=== PATIENT | female | born 1960 | race American Indian/Alaskan Native ===

== ENCOUNTER 2019-02-03 05:44 | Observation (INO) | payer BC ==
[2019-02-03] MEDS ORDERED: ASPIRIN PO ONE (05:48)
[2019-02-03] MEDS ORDERED: LEVAQUIN 500MG/100ML 0 MG/0 ML BAG IV ONE (05:54)
[2019-02-03 06:08] LABS: Basophils # (Auto) 0.1 K/mm3 (0.0-0.1); Basophils % (Auto) 0.9 % (0.0-1.8); Eosinophils # (Auto) 0.3 K/mm3 (0.0-0.4); Eosinophils % (Auto) 4.1 % (0.0-4.3); Hematocrit 37.8 % (30.3-42.9); Hemoglobin 12.6 gm/dl (10.1-14.3); Lymphocytes # (Auto) 1.7 K/mm3 (1.2-5.4); Lymphocytes % (Auto) 25.5 % (13.4-35.0); Mean Corpuscular HGB Conc 33 % (30-34); Mean Corpuscular Volume 89 fl (79-97); Monocytes # (Auto) 0.4 K/mm3 (0.0-0.8); Monocytes % (Auto) 5.8 % (0.0-7.3); Platelet Count 295 K/mm3 (140-440); Red Blood Count 4.25 M/mm3 (3.65-5.03)
[2019-02-03] MEDS ORDERED: NITRO-BID 2% TP ONE ×2 (06:28→07:39)
[2019-02-03 06:29] LABS: BUN/Creatinine Ratio 20; Blood Urea Nitrogen 20 mg/dL (7-17); Hemolysis Index 2
--- NOTE | 2019-02-03 06:29 | XRay Report ---
CHEST 1 VIEW 5:57 AM INDICATION / CLINICAL INFORMATION: Chest Pain. COMPARISON: None available. FINDINGS: SUPPORT DEVICES: None. HEART / MEDIASTINUM: The heart size is normal with a mild left ventricular configuration. There is mi ld aortic tortuosity without aneurysm. Pulmonary vasculature is normal. LUNGS / PLEURA: No significant pulmonary or pleural abnormality. No pneumothorax. ADDITIONAL FINDINGS: No significant additional findings. IMPRESSION: No acute abnormality. Signer Name: Xavi Monge MD Signed: 02/03/2019 6:24 AM Workstation Name: [id number]
[2019-02-03 07:01] LABS: INR 1.05 (0.87-1.13); Partial Thromboplastin Time 26.5 Sec. (24.2-36.6)
--- NOTE | 2019-02-03 07:06 | Emergency Department Report ---
ED Chest Pain HPI - General Chief Complaint: Chest Pain Stated Complaint: CHEST PRESSURE/WEAKNESS Time Seen by Provider: 02/03/19 06:05 Source: EMS Mode of arrival: Stretcher Limitations: No Limitations - History of Present Illness Initial Comments: This is a 58-year-old female who reports chest pain since 2 PM yesterday. She apparently would like to relate this to sleeping in a multi area which she exercises. She does not report any acute respiratory change or cough however. She states that she has had a hospitalization in July in [facility] for chest pain. She may have had a CT scan at that time. She cannot further describe what sort of workup she had. She denies being on anticoagulants. 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 She gives no prior history of venous thromboembolism. Pain is nonpleuritic and nonradiating. She states that she had some sweating but no acute dyspnea. He does not complain of leg pain or swelling either. She denies being a smoker. She denies diabetes, hypertension and high cholesterol. MD Complaint: chest pain -: Gradual, hour(s) Onset: during rest Pain Location: substernal Pain Radiation: none Severity: moderate Quality: tightness Consistency: constant Improves With: nothing Worsens With: nothing re: diaphoresis (some sweating but not daniella diaphoresis). denies: nausea, vomting Other Symptoms: denies: cough, fever, syncope Treatments Prior to Arrival: none Aspirin use within the Past 7 Days: (0) No - Related Data Allergies Allergy/AdvReac Type Severity Reaction Status Date / Time No Known Allergies Allergy Verified 02/03/19 05:48 Heart Score - HEART Score History: Moderately suspicious EKG: Non-specific Age: 45-65 Risk factors: 1-2 risk factors Troponin: < normal limit HEART Score: 4 - Critical Actions Critical Actions: 4-6 pts:12-16.6% risk of adverse cardiac event. Should be admitted ED Review of Systems ROS: Stated complaint: CHEST PRESSURE/WEAKNESS Other details as noted in HPI Constitutional: weakness. denies: chills, fever Eyes: denies: eye pain, eye discharge, vision change ENT: denies: ear pain, throat pain Respiratory: denies: cough, shortness of breath, wheezing Cardiovascular: chest pain. denies: palpitations Endocrine: no symptoms reported Gastrointestinal: denies: abdominal pain, nausea, diarrhea Genitourinary: denies: urgency, dysuria, discharge Musculoskeletal: denies: back pain, joint swelling, arthralgia Skin: denies: rash, lesions Neurological: denies: headache, weakness, paresthesias Psychiatric: denies: anxiety, depression Hematological/Lymphatic: denies: easy bleeding, easy bruising ED Past Medical Hx - Past Medical History Previous Medical History?: Yes Hx of Cancer: Yes (left kidney) - Surgical History Past Surgical History?: Yes Hx Cholecystectomy: Yes Additional Surgical History: kidney removal - Social History Smoking Status: Never Smoker Substance Use Type: None ED Physical Exam - General Limitations: No Limitations General appearance: alert, in no apparent distress, obese - Head Head exam: Present: atraumatic, normocephalic - Eye Eye exam: Present: normal appearance - ENT ENT exam: Present: mucous membranes moist - Neck Neck exam: Present: normal inspection - Respiratory Respiratory exam: Present: normal lung sounds bilaterally. Absent: respiratory distress - Cardiovascular Cardiovascular Exam: Present: regular rate, normal rhythm. Absent: systolic murmur, diastolic murmur, rubs, gallop - GI/Abdominal GI/Abdominal exam: Present: soft, normal bowel sounds. Absent: distended, tenderness, guarding, rebound - Extremities Exam Extremities exam: Present: normal inspection, normal capillary refill. Absent: pedal edema, joint swelling, calf tenderness - Back Exam Back exam: Present: normal inspection - Neurological Exam Neurological exam: Present: alert, oriented X3, CN II-XII intact. Absent: motor sensory deficit - Psychiatric Psychiatric exam: Present: normal affect, normal mood - Skin Skin exam: Present: warm, dry, intact, normal color. Absent: rash ED Course Vital Signs 02/03/19 02/03/19 02/03/19 05:42 05:46 05:50 Temperature 98 F Pulse Rate 73 Respiratory 8 L Rate Blood Pressure Blood Pressure [Left] O2 Sat by Pulse 99 100 Oximetry 02/03/19 02/03/19 02/03/19 06:01 06:15 07:20 Temperature Pulse Rate 80 75 75 Respiratory 14 21 15 Rate Blood Pressure 161/62 161/62 Blood Pressure 183/78 [Left] O2 Sat by Pulse 98 Oximetry 02/03/19 07:46 Temperature Pulse Rate 66 Respiratory Rate Blood Pressure 186/94 Blood Pressure [Left] O2 Sat by Pulse Oximetry - Reevaluation(s) Reevaluation #1: The patient has a very slightly elevated d-dimer. She will be admitted for further care and evaluation. 02/03/19 07:09 Reevaluation #2: I discussed with hospitalists the patient's slightly elevated d-dimer. They stated they will not be able to get a stress test if we order a radionuclide study now. The patient does not have access for a CT angiogram. Her d-dimer is very minimally elevated. Thus I am not going to order a lung scan at this time. Patient is admitted to Dr. Brownlee for further evaluation. 02/03/19 07:50 ED Medical Decision Making - Lab Data Result diagrams: 02/03/19 05:52 02/03/19 05:52 Laboratory Results - last 24 hr 02/03/19 02/03/19 02/03/19 05:52 05:52 06:39 WBC 6.9 RBC 4.25 Hgb 12.6 Hct 37.8 MCV 89 MCH 30 MCHC 33 RDW 14.0 Plt Count 295 Lymph % (Auto) 25.5 [place] % (Auto) 5.8 Eos % (Auto) 4.1 Baso % (Auto) 0.9 Lymph # 1.7 [place] # 0.4 Eos # 0.3 Baso # 0.1 Seg Neutrophils % 63.7 Seg Neutrophils # 4.4 PT 13.4 INR 1.05 APTT 26.5 D-Dimer 260.36 H Sodium 143 Potassium 4.3 Chloride 106.5 Carbon Dioxide 25 Anion Gap 16 BUN 20 H Creatinine 1.0 Estimated GFR > 60 BUN/Creatinine Ratio 20 Glucose 108 H Calcium 9.0 Troponin T < 0.010 - EKG Data -: EKG Interpreted by Me EKG shows normal: sinus rhythm Rate: normal - EKG Data Interpretation: nonspecific ST-T wave john (very slight inferolateral ST depression nonspecific) - Radiology Data Radiology results: image reviewed (no acute process) Critical care attestation.: If time is entered above; I have spent that time in minutes in the direct care o f this critically ill patient, excluding procedure time. ED Disposition Clinical Impression: Uncontrolled hypertension Chest pain Qualifiers: Chest pain type: unspecified Qualified Code(s): R07.9 - Chest pain, unspecified Disposition: - OP ADMIT IP TO THIS HOSP Is pt being admited?: Yes Does the pt Need Aspirin: Yes Condition: Stable Instructions: Chest Pain (ED), Hypertension (ED) Referrals: PRIMARY CARE, [Primary Care Provider] - 3-5 Days Time of Disposition: 07:52
[2019-02-03 07:18] LABS: Alanine Aminotransferase 10 units/L (7-56); Albumin 3.6 g/dL (3.9-5)
[2019-02-03 07:20] LABS: Bilirubin,Direct < 0.2 mg/dL (0-0.2)
--- NOTE | 2019-02-03 12:17 | History and Physical Report ---
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 The patient reports that she did does not have any chronic medical condition on July it did have a stress test done which she states was a nuclear stress test does not remember the result. She reports that in the last 2 days she started noticing some nonproductive cough which followed by a pressure sensation in her chest and nonradiating nonpleuritic about a 4/10 in intensity. She began to stress some shortness of breath and took some uolm-odp-wogytwe allergy medications for them that this may be allergy. She shows me a picture of a discoloration on a copy of flow which she claims is mold and Dr. osman at the hotel where she may have this pain and reports that the staff at the facility confirmed it. She otherwise feels that this is not chest pain and reports some relief at this time. He denies any diaphoresis nausea vomiting or diarrhea. Again she denies any radiation of the pain. There is no exertional component to the pain. Past History Past Medical History: cancer (renal cancer left kidney), other (obesity) Past Surgical History: Other (left nephrectomy secondary to malignancy) Social history: no significant social history Family history: no significant family history Medications and Allergies Allergies Allergy/AdvReac Type Severity Reaction Status Date / Time No Known Allergies Allergy Verified 02/03/19 05:48 Home Medications Medication Instructions Recorded Confirmed Last Taken Type Desloratadine/Pseudoephedrine 1 each PO PRN 02/03/19 02/03/19 Unknown History [Clarinex-D 12 Hour Tablet] Mv-Min/Iron/Folic/Calcium/Vitk 1 each PO DAILY 02/03/19 02/03/19 Unknown History [Women's Multivitamin Tablet] Active Meds: Active Medications Miscellaneous Medication (Mv-Min/Iron/Folic/Calcium/Vitk [Women's Multivitamin Tablet]) 1 each PO DAILY MERA Review of Systems All systems: negative Constitutional: no fever, no chills, no sweats, no night sweats, no weakness, no malaise Cardiovascular: chest pain, shortness of breath, no orthopnea, no palpitations, no rapid/irregular heart beat, no edema, no syncope, no lightheadedness Respiratory: cough, shortness of breath, dyspnea on exertion, no cough with sputum, no excessive sputum, no hemoptysis Exam - Physical Exam Narrative exam: VITAL SIGNS: Reviewed. GENERAL: The patient appears normally developed, morbidly obese Vital signs as documented. HEAD: No signs of head trauma. EYES: Pupils are equal. Extraocular motions intact. EARS: Hearing grossly intact. MOUTH: Oropharynx is normal. NECK: No adenopathy, no JVD. CHEST: Chest with diminished breath sounds bilaterally. No wheezes, rales, or rhonchi. CARDIAC: Regular rate and rhythm. S1 and S2, without murmurs, gallops, or rubs. VASCULAR: No Edema. Peripheral pulses normal and equal in all extremities. ABDOMEN: Soft, non tender and non distended. No rebound or guarding, and no masses palpated. Bowel Sounds normal. MUSCULOSKELETAL: Good range of motion of all major joints. Extremities without clubbing, cyanosis or edema. NEUROLOGIC EXAM: Alert and oriented x 3 No focal sensory or strength deficits. Speech normal. Follows commands. PSYCHIATRIC: Mood normal. SKIN: detail exam as documented in skin assessment - Constitutional Vitals: Temp Pulse Resp BP Pulse Ox 97.5 F L 62 16 148/72 99 02/03/19 11:58 02/03/19 11:58 02/03/19 11:58 02/03/19 11:58 02/03/19 11:58 General appearance: Present: obese Results - Labs CBC & Chem 7: 02/03/19 05:52 02/03/19 05:52 Labs: Laboratory Last Values WBC 6.9 K/mm3 (4.5-11.0) 02/03/19 05:52 RBC 4.25 M/mm3 (3.65-5.03) 02/03/19 05:52 Hgb 12.6 gm/dl (10.1-14.3) 02/03/19 05:52 Hct 37.8 % (30.3-42.9) 02/03/19 05:52 MCV 89 fl (79-97) 02/03/19 05:52 MCH 30 pg (28-32) 02/03/19 05:52 MCHC 33 % (30-34) 02/03/19 05:52 RDW 14.0 % (13.2-15.2) 02/03/19 05:52 Plt Count 295 K/mm3 (140-440) 02/03/19 05:52 Lymph % (Auto) 25.5 % (13.4-35.0) 02/03/19 05:52 [place] % (Auto) 5.8 % (0.0-7.3) 02/03/19 05:52 Eos % (Auto) 4.1 % (0.0-4.3) 02/03/19 05:52 Baso % (Auto) 0.9 % (0.0-1.8) 02/03/19 05:52 Lymph # 1.7 K/mm3 (1.2-5.4) 02/03/19 05:52 [place] # 0.4 K/mm3 (0.0-0.8) 02/03/19 05:52 Eos # 0.3 K/mm3 (0.0-0.4) 02/03/19 05:52 Baso # 0.1 K/mm3 (0.0-0.1) 02/03/19 05:52 Seg Neutrophils % 63.7 % (40.0-70.0) 02/03/19 05:52 Seg Neutrophils # 4.4 K/mm3 (1.8-7.7) 02/03/19 05:52 PT 13.4 Sec. (12.2-14.9) 02/03/19 06:39 INR 1.05 (0.87-1.13) 02/03/19 06:39 APTT 26.5 Sec. (24.2-36.6) 02/03/19 06:39 260.36 ng/mlDDU (0-234) H 02/03/19 06:39 Sodium 143 mmol/L (137-145) 02/03/19 05:52 Potassium 4.3 mmol/L (3.6-5.0) 02/03/19 05:52 Chloride 106.5 mmol/L (98-107) 02/03/19 05:52 Carbon Dioxide 25 mmol/L (22-30) 02/03/19 05:52 16 mmol/L 02/03/19 05:52 BUN 20 mg/dL (7-17) H 02/03/19 05:52 1.0 mg/dL (0.7-1.2) 02/03/19 05:52 Estimated GFR > 60 ml/min 02/03/19 05:52 20 % 02/03/19 05:52 Glucose 108 mg/dL (65-100) H 02/03/19 05:52 Calcium 9.0 mg/dL (8.4-10.2) 02/03/19 05:52 Magnesium 1.90 mg/dL (1.7-2.3) 02/03/19 05:52 0.30 mg/dL (0.1-1.2) 02/03/19 05:52 < 0.2 mg/dL (0-0.2) 02/03/19 05:52 0.1 mg/dL 02/03/19 05:52 AST 17 units/L (5-40) 02/03/19 05:52 ALT 10 units/L (7-56) 02/03/19 05:52 88 units/L (35-129) 02/03/19 05:52 < 0.010 ng/mL (0.00-0.029) 02/03/19 11:49 NT-Pro-B Natriuret Pep 38.11 pg/mL (0-900) 02/03/19 05:52 7.8 g/dL (6.3-8.2) 02/03/19 05:52 3.6 g/dL (3.9-5) L 02/03/19 05:52 0.9 % 02/03/19 05:52 Assessment and Plan Assessment and plan: 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 The patient reports that she did does not have any chronic medical condition on July it did have a stress test done which she states was a nuclear stress test does not remember the result. She reports that in the last 2 days she started noticing some nonproductive cough which followed by a pressure sensation in her chest and nonradiating nonpleuritic about a 4/10 in intensity. She began to stress some shortness of breath and took some iawl-haa-bjlatdl allergy medications for them that this may be allergy. She shows me a picture of a discoloration on a copy of flow which she claims is mold and Dr. osman at the hotel where she may have this pain and reports that the staff at the facility confirmed it. She otherwise feels that this is not chest pain and reports some relief at this time. He denies any diaphoresis nausea vomiting or diarrhea. Again she denies any radiation of the pain. There is no exertional component to the pain. Atypical chest pain Shortness of breath Morbid Obesity Elevated D.dimer Plan Admit to Telemetry Nebs prn Obtain Records from outside facility Stress test protocol Empiric ABX Pulmonary consult Weightloss counselling DVT/GI prophy Advance Directives: Yes Plan of care discussed with patient/family: Yes
--- NOTE | 2019-02-03 12:18 | History and Physical Report ---
History of Present Illness Date of admission: 02/03/19 07:52 Medications and Allergies Allergies Allergy/AdvReac Type Severity Reaction Status Date / Time No Known Allergies Allergy Verified 02/03/19 05:48 Home Medications Medication Instructions Recorded Confirmed Last Taken Type Desloratadine/Pseudoephedrine 1 each PO PRN 02/03/19 02/03/19 Unknown History [Clarinex-D 12 Hour Tablet] Mv-Min/Iron/Folic/Calcium/Vitk 1 each PO DAILY 02/03/19 02/03/19 Unknown History [Women's Multivitamin Tablet] Active Meds: Active Medications Miscellaneous Medication (Mv-Min/Iron/Folic/Calcium/Vitk [Women's Multivitamin Tablet]) 1 each PO DAILY MERA Exam - Constitutional Vitals: Temp Pulse Resp BP Pulse Ox 97.5 F L 62 16 148/72 99 02/03/19 11:58 02/03/19 11:58 02/03/19 11:58 02/03/19 11:58 02/03/19 11:58 Results - Labs CBC & Chem 7: 02/03/19 05:52 02/03/19 05:52 Labs: Laboratory Last Values WBC 6.9 K/mm3 (4.5-11.0) 02/03/19 05:52 RBC 4.25 M/mm3 (3.65-5.03) 02/03/19 05:52 Hgb 12.6 gm/dl (10.1-14.3) 02/03/19 05:52 Hct 37.8 % (30.3-42.9) 02/03/19 05:52 MCV 89 fl (79-97) 02/03/19 05:52 MCH 30 pg (28-32) 02/03/19 05:52 MCHC 33 % (30-34) 02/03/19 05:52 RDW 14.0 % (13.2-15.2) 02/03/19 05:52 Plt Count 295 K/mm3 (140-440) 02/03/19 05:52 Lymph % (Auto) 25.5 % (13.4-35.0) 02/03/19 05:52 Iron % (Auto) 5.8 % (0.0-7.3) 02/03/19 05:52 Eos % (Auto) 4.1 % (0.0-4.3) 02/03/19 05:52 Baso % (Auto) 0.9 % (0.0-1.8) 02/03/19 05:52 Lymph # 1.7 K/mm3 (1.2-5.4) 02/03/19 05:52 Iron # 0.4 K/mm3 (0.0-0.8) 02/03/19 05:52 Eos # 0.3 K/mm3 (0.0-0.4) 02/03/19 05:52 Baso # 0.1 K/mm3 (0.0-0.1) 02/03/19 05:52 Seg Neutrophils % 63.7 % (40.0-70.0) 02/03/19 05:52 Seg Neutrophils # 4.4 K/mm3 (1.8-7.7) 02/03/19 05:52 PT 13.4 Sec. (12.2-14.9) 02/03/19 06:39 INR 1.05 (0.87-1.13) 02/03/19 06:39 APTT 26.5 Sec. (24.2-36.6) 02/03/19 06:39 260.36 ng/mlDDU (0-234) H 02/03/19 06:39 Sodium 143 mmol/L (137-145) 02/03/19 05:52 Potassium 4.3 mmol/L (3.6-5.0) 02/03/19 05:52 Chloride 106.5 mmol/L (98-107) 02/03/19 05:52 Carbon Dioxide 25 mmol/L (22-30) 02/03/19 05:52 16 mmol/L 02/03/19 05:52 BUN 20 mg/dL (7-17) H 02/03/19 05:52 1.0 mg/dL (0.7-1.2) 02/03/19 05:52 Estimated GFR > 60 ml/min 02/03/19 05:52 20 % 02/03/19 05:52 Glucose 108 mg/dL (65-100) H 02/03/19 05:52 Calcium 9.0 mg/dL (8.4-10.2) 02/03/19 05:52 Magnesium 1.90 mg/dL (1.7-2.3) 02/03/19 05:52 0.30 mg/dL (0.1-1.2) 02/03/19 05:52 < 0.2 mg/dL (0-0.2) 02/03/19 05:52 0.1 mg/dL 02/03/19 05:52 AST 17 units/L (5-40) 02/03/19 05:52 ALT 10 units/L (7-56) 02/03/19 05:52 88 units/L (35-129) 02/03/19 05:52 < 0.010 ng/mL (0.00-0.029) 02/03/19 11:49 NT-Pro-B Natriuret Pep 38.11 pg/mL (0-900) 02/03/19 05:52 7.8 g/dL (6.3-8.2) 02/03/19 05:52 3.6 g/dL (3.9-5) L 02/03/19 05:52 0.9 % 02/03/19 05:52
[2019-02-03] MEDS ORDERED: PROVENTIL IH PRN (12:19)
[2019-02-03] MEDS ORDERED: MORPHINE IV PRN (12:19)
[2019-02-03] MEDS ORDERED: NARCAN 0.4 MG/1 ML IV PRN (12:19)
[2019-02-03] MEDS ORDERED: SODIUM CHLORIDE FLUSH SYRINGE 10 ML IV PRN (12:19)
[2019-02-03] MEDS ORDERED: ZOFRAN IV PRN (12:19)
[2019-02-03] MEDS ORDERED: APRESOLINE IV PRN (16:46)
--- NOTE | 2019-02-03 21:32 | Cat Scan Report ---
NONENHANCED CT SCAN OF THE BRAIN: INDICATION: light headedness. TECHNIQUE: Routine CT head without contrast. Sagittal and coronal reformatted images were obtained. A ll CT scans at this location are performed using CT dose reduction for ALARA by means of automated ex posure control. COMPARISON: None. FINDINGS: BRAIN / INTRACRANIAL CONTENTS: No acute hemorrhage, mass effect, midline shift, hydrocephalus, or acu te, large territorial infarct. No chronic infarct or focal atrophy. Normal brain volume and ventricul ar/sulcal size for age. No significant white matter abnormality CRANIOCERVICAL JUNCTION: No significant abnormality. ORBITS: No significant abnormality of visualized orbits. SINUSES / MASTOIDS: No significant abnormality of the visualized paranasal sinuses or mastoid air soy ls. ADDITIONAL FINDINGS: This is seen. Small scalp lesion is seen in the frontal area midline. Probably s ebaceous cyst. IMPRESSION: I do not see an acute parenchymal lesion in the brain. Signer Name: Aby Small MD Signed: 02/03/2019 9:28 PM Workstation Name: [id number]
[2019-02-03] MEDS: PEPCID IV SCH (21:35)
--- NOTE | 2019-02-03 22:51 | Cat Scan Report ---
CT angio chest INDICATION / CLINICAL INFORMATION: shortness of breath. TECHNIQUE: Axial CT images were obtained after injection of IV contrast using CTA protocol. 3 plane MIP / 3D rec onstructions were produced. All CT scans at this location are performed using CT dose reduction for A CHANDAN by means of automated exposure control. COMPARISON: None available. FINDINGS: Lungs demonstrate no suspicious mass or infiltrate. There is mild peripheral interstitial disease. A noncalcified right middle lobe nodule measures 6 mm. Negative for aneurysm, dissection or pulmonary embolus. There is no mediastinal mass or adenopathy. Imaging of the upper abdomen demonstrates previous left nephrectomy and cholecystectomy. Negative for biliary dilatation. IMPRESSION: 1. Negative for pulmonary embolus or pneumonia. 2. Incidental pulmonary nodule measuring 6 mm. INCIDENTAL PULMONARY NODULE RECOMMENDATIONS Solid Nodule size 6-8 mm -- Single - Low Risk Patient: CT at 6-12 months, then consider CT at 18-24 months - High Risk Patient: CT at 6-12 months, then CT at 18-24 months Note These recommendations do not apply to lung cancer screening, patients with immunosuppression, o r patients with known primary cancer. Note Newly detected indeterminate nodule in persons 35 years of age or older. Persons under the age of 35 should not receive follow-up unless there is a known primary cancer. Low Risk Patient -- minimal or absent history of smoking and of other known risk factors. High Risk Patient -- history of smoking or of other known risk factors. Nodule dimensions are average of long and short axes, rounded to the nearest millimeter. Based on 2017 Fleischner Society Guidelines found in Radiology 2017 284:228-243. [email or web address] [email or web address] Signer Name: Bernardo Bowens MD Signed: 02/03/2019 10:46 PM Workstation Name: [id number]
[2019-02-03] MEDS ORDERED: NACL 0.9% 1000 ML 1,000 ML IV ONE (23:00)
[2019-02-03] MEDS: SODIUM CHLORIDE FLUSH SYRINGE 10 ML IV SCH (23:12)
[2019-02-04] MEDS: FLONASE NS SCH ×2 (02:01→10:38)
[2019-02-04 05:47] LABS: Basophils # (Auto) 0.1 K/mm3 (0.0-0.1); Basophils % (Auto) 1.2 % (0.0-1.8); Eosinophils # (Auto) 0.3 K/mm3 (0.0-0.4); Eosinophils % (Auto) 4.8 % (0.0-4.3); Hematocrit 37.6 % (30.3-42.9); Hemoglobin 12.5 gm/dl (10.1-14.3); Lymphocytes # (Auto) 1.6 K/mm3 (1.2-5.4); Mean Corpuscular HGB Conc 33 % (30-34); Mean Corpuscular Volume 89 fl (79-97); Monocytes # (Auto) 0.4 K/mm3 (0.0-0.8); Platelet Count 318 K/mm3 (140-440); Red Blood Count 4.25 M/mm3 (3.65-5.03); Red Cell Distribution Width 14.1 % (13.2-15.2)
[2019-02-04 06:11] LABS: BUN/Creatinine Ratio 13; Blood Urea Nitrogen 12 mg/dL (7-17); Calcium 8.9 mg/dL (8.4-10.2); Hemolysis Index 5
[2019-02-04] MEDS ORDERED: LEXISCAN IV ONE ×2 (08:05→08:09)
[2019-02-04] MEDS ORDERED: MV MIN PO SCH (10:00)
[2019-02-04] MEDS ORDERED: CALCIUM PO SCH (10:00)
[2019-02-04] MEDS ORDERED: VITK PO SCH (10:00)
[2019-02-04] MEDS ORDERED: HCTZ PO SCH (10:00)
[2019-02-04] MEDS ORDERED: IRON PO SCH (10:00)
[2019-02-04] MEDS ORDERED: FOLIC PO SCH (10:00)
[2019-02-04] MEDS: PEPCID IV SCH ×2 (10:37→21:48)
[2019-02-04] MEDS: SODIUM CHLORIDE FLUSH SYRINGE 10 ML IV SCH ×2 (10:38→21:50)
[2019-02-04] MEDS: THERAGRAN-M Tab PO SCH (10:38)
--- NOTE | 2019-02-04 11:00 | Discharge Summary ---
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 The patient reports that she did does not have any chronic medical condition on July it did have a stress test done which she states was a nuclear stress test does not remember the result. She reports that in the last 2 days she started noticing some nonproductive cough which followed by a pressure sensation in her chest and nonradiating nonpleuritic about a 4/10 in intensity. She began to stress some shortness of breath and took some fceo-gmq-htbthjg allergy medications for them that this may be allergy. She shows me a picture of a discoloration on a copy of flow which she claims is mold and Dr. osman at the hotel where she may have this pain and reports that the staff at the facility confirmed it. She otherwise feels that this is not chest pain and reports some relief at this time. He denies any diaphoresis nausea vomiting or diarrhea. Again she denies any radiation of the pain. There is no exertional component to the pain. Atypical chest pain Shortness of breath Morbid Obesity Elevated D.dimer PULMONARY NODULE Disposition: TO HOME OR SELFCARE Exam - Constitutional Vitals: Temp Pulse Resp BP Pulse Ox 98.0 F 67 18 172/70 97 02/04/19 08:09 02/04/19 08:09 02/04/19 08:09 02/04/19 09:48 02/04/19 08:09 Plan Activity: advance as tolerated, fall precautions Diet: low fat Special Instructions: record daily BP diary Follow up with: YARELY GE MD [Staff Physician] - 7 Days PRIMARY CARE, [Primary Care Provider] - 3-5 Days Prescriptions: Fluticasone [Flonase] 50 mcg NS QDAY #1 bottle Lisinopril [Zestril TAB] 20 mg PO QDAY #30 tablet
--- NOTE | 2019-02-04 13:40 | Progress Note ---
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 The patient reports that she did does not have any chronic medical condition on July it did have a stress test done which she states was a nuclear stress test does not remember the result. She reports that in the last 2 days she started noticing some nonproductive cough which followed by a pressure sensation in her chest and nonradiating nonpleuritic about a 4/10 in intensity. She began to stress some shortness of breath and took some [id number] allergy medications for them that this may be all ergy. She shows me a picture of a discoloration on a copy of flow which she claims is mold and Dr. osman at the hotel where she may have this pain and reports that the staff at the facility confirmed it. She otherwise feels that this is not chest pain and reports some relief at this time. He denies any diaphoresis nausea vomiting or diarrhea. Again she denies any radiation of the pain. There is no exertional component to the pain. Atypical chest pain Shortness of breath Morbid Obesity Elevated D.dimer Uncontrolled hypertension Plan Stress test was negative, head CT is negative CTA is also negative for pulmonary embolism there is a pulmonary nodule which is noted recommended a repeat CT scan in 6 months the patient verbalized understanding. Recommended an outpatient pulmonary follow-up for PFT. Patient verbalized understanding. 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 Agent verbalized concern for possible mold this has been discussed with her and need to follow-up with pulmonary. Talishas prn Ultimately we will unable to obtain results from previous facility which is why the patient underwent a stress test at this time since she is aware of her previous stress results. E Patient will be started on blood pressure medication considering her elevated blood pressure despite her anxiety. She has been instructed to have outpatient ambulatory blood pressure and also keep a blood pressure diary. I've requested that she obtains a repeat BMP outpatient in the week following the initiation of antibiotics Obtain a Doppler of lower extremity for completion. Gentle hydration dvt GI prophylaxis anticipate discharge in a.m. extensive conversation with the patient including medicine staff and case management for present in the room. History Interval history: Patient seen and examined this morning very emotional reports that she is having headache which is resolving. She rates it 3/10 in intensity but states that she is feels that this is secondary to contrast she has had this before when she had a contrast test in the past she is requesting fluids. Spent extensive time about one half hours discussing with the patient and family about her kidney function considering that she is a patient that has had a history of nephrectomy. His understanding Review of her vital signs shows that when she is emotional and anxious her blood pressure does elevate was also discussed with her. Hospitalist Physical - Physical exam Narrative exam: VITAL SIGNS: Reviewed. GENERAL: The patient appears normally developed, morbidly obese Vital signs as documented. HEAD: No signs of head trauma. EYES: Pupils are equal. Extraocular motions intact. EARS: Hearing grossly intact. MOUTH: Oropharynx is normal. NECK: No adenopathy, no JVD. CHEST: Chest with diminished breath sounds bilaterally. No wheezes, rales, or rhonchi. CARDIAC: Regular rate and rhythm. S1 and S2, without murmurs, gallops, or rubs. VASCULAR: No Edema. Peripheral pulses normal and equal in all extremities. ABDOMEN: Soft, non tender and non distended. No rebound or guarding, and no masses palpated. Bowel Sounds normal. MUSCULOSKELETAL: Good range of motion of all major joints. Extremities without clubbing, cyanosis or edema. NEUROLOGIC EXAM: Alert and oriented x 3 No focal sensory or strength deficits. Speech normal. Follows commands. PSYCHIATRIC: Mood normal. SKIN: detail exam as documented in skin assessment - Constitutional Vitals: Temp Pulse Resp BP Pulse Ox 98.0 F 67 18 172/70 97 02/04/19 08:09 02/04/19 08:09 02/04/19 08:09 02/04/19 09:48 02/04/19 08:09 General appearance: Present: obese Results - Labs CBC & Chem 7: 02/04/19 05:15 02/04/19 05:15 Labs: Laboratory Last Values WBC 6.9 K/mm3 (4.5-11.0) 02/04/19 05:15 RBC 4.25 M/mm3 (3.65-5.03) 02/04/19 05:15 Hgb 12.5 gm/dl (10.1-14.3) 02/04/19 05:15 Hct 37.6 % (30.3-42.9) 02/04/19 05:15 MCV 89 fl (79-97) 02/04/19 05:15 MCH 29 pg (28-32) 02/04/19 05:15 MCHC 33 % (30-34) 02/04/19 05:15 RDW 14.1 % (13.2-15.2) 02/04/19 05:15 Plt Count 318 K/mm3 (140-440) 02/04/19 05:15 Lymph % (Auto) 23.0 % (13.4-35.0) 02/04/19 05:15 [facility] % (Auto) 6.0 % (0.0-7.3) 02/04/19 05:15 Eos % (Auto) 4.8 % (0.0-4.3) H 02/04/19 05:15 Baso % (Auto) 1.2 % (0.0-1.8) 02/04/19 05:15 Lymph # 1.6 K/mm3 (1.2-5.4) 02/04/19 05:15 [facility] # 0.4 K/mm3 (0.0-0.8) 02/04/19 05:15 Eos # 0.3 K/mm3 (0.0-0.4) 02/04/19 05:15 Baso # 0.1 K/mm3 (0.0-0.1) 02/04/19 05:15 Seg Neutrophils % 65.0 % (40.0-70.0) 02/04/19 05:15 Seg Neutrophils # 4.5 K/mm3 (1.8-7.7) 02/04/19 05:15 PT 13.4 Sec. (12.2-14.9) 02/03/19 06:39 INR 1.05 (0.87-1.13) 02/03/19 06:39 APTT 26.5 Sec. (24.2-36.6) 02/03/19 06:39 260.36 ng/mlDDU (0-234) H 02/03/19 06:39 Sodium 140 mmol/L (137-145) 02/04/19 05:15 Potassium 4.2 mmol/L (3.6-5.0) 02/04/19 05:15 Chloride 105.0 mmol/L (98-107) 02/04/19 05:15 Carbon Dioxide 25 mmol/L (22-30) 02/04/19 05:15 14 mmol/L 02/04/19 05:15 BUN 12 mg/dL (7-17) 02/04/19 05:15 0.9 mg/dL (0.7-1.2) 02/04/19 05:15 Estimated GFR > 60 ml/min 02/04/19 05:15 13 % 02/04/19 05:15 Glucose 106 mg/dL (65-100) H 02/04/19 05:15 Calcium 8.9 mg/dL (8.4-10.2) 02/04/19 05:15 Magnesium 1.90 mg/dL (1.7-2.3) 02/03/19 05:52 0.30 mg/dL (0.1-1.2) 02/03/19 05:52 < 0.2 mg/dL (0-0.2) 02/03/19 05:52 0.1 mg/dL 02/03/19 05:52 AST 17 units/L (5-40) 02/03/19 05:52 ALT 10 units/L (7-56) 02/03/19 05:52 88 units/L (35-129) 02/03/19 05:52 < 0.010 ng/mL (0.00-0.029) 02/03/19 11:49 NT-Pro-B Natriuret Pep 38.11 pg/mL (0-900) 02/03/19 05:52 7.8 g/dL (6.3-8.2) 02/03/19 05:52 3.6 g/dL (3.9-5) L 02/03/19 05:52 0.9 % 02/03/19 05:52 Active Medications - Current Medications Current Medications: Generic Name Dose Route Start Last Admin Trade Name Freq PRN Reason Stop Dose Admin Acetaminophen 650 mg 02/03/19 12:19 Tylenol PO Q4H PRN Pain MILD(1-3)/Fever >100.5/BRONSON Albuterol 2.5 mg 02/03/19 12:19 Proventil IH Q4HRT PRN Shortness Of Breath Cyclobenzaprine HCl 5 mg 02/03/19 12:21 Flexeril PO Q8H PRN Muscle Spasm Famotidine 10 mg 02/03/19 22:00 02/04/19 10:37 Pepcid IV 10 mg BID MERA Administration Fluticasone Propionate 50 mcg 02/04/19 02:00 02/04/19 10:38 Flonase NS 50 mcg QDAY MERA Administration Hydralazine HCl 10 mg 02/03/19 16:46 02/03/19 21:36 Apresoline IV 10 mg Q6H PRN Administration Hypertension Hydrochlorothiazide 12.5 mg 02/04/19 10:00 02/04/19 10:38 Hctz PO 12.5 mg QDAY MERA Administration Morphine Sulfate 2 mg 02/03/19 12:19 Morphine IV Q4H PRN Pain, Moderate (4-6) Multivitamins/Minerals 1 each 02/04/19 10:00 02/04/19 10:38 Theragran-M Tab PO 1 each QDAY MERA Administration Naloxone HCl 0.1 mg 02/03/19 12:19 Narcan 0.4 Mg/1 Ml IV Q2MIN PRN Res Rate </= 8 or 02 SAT < 92% Ondansetron HCl 4 mg 02/03/19 12:19 Zofran IV Q8H PRN Nausea And Vomiting Sodium Chloride 10 ml 02/03/19 22:00 02/04/19 10:38 Sodium Chloride Flush Syringe 10 Ml IV 10 ml BID MERA Administration Sodium Chloride 10 ml 02/03/19 12:19 Sodium Chloride Flush Syringe 10 Ml IV PRN PRN LINE FLUSH
[2019-02-04] MEDS ORDERED: NACL 0.9% 1000 ML 1,000 ML IV SCH (14:00)
--- NOTE | 2019-02-04 14:00 | Treadmill Report ---
REFERRING PHYSICIAN: Navraro Brownlee M.D. REVIEWED AND DICTATED BY: Stephanie Art M.D. DESCRIPTION OF PROCEDURE: The patient received 10 mCi of technetium 99m Myoview intravenously under resting conditions. Resting myocardial perfusion scan was done. Subsequently, the patient underwent Lexiscan stress test as per the protocol. During Lexiscan stress, the patient received 28 mCi of technetium 99m Myoview intravenously. After 30-60 minutes, post stress images were done. Computerized reconstruction images was performed for analysis. The post-stress images did not reveal any perfusion abnormality. Gated study did not reveal any wall motion abnormality. The left ventricular ejection fraction was normal and was calculated to be 64%. The resting images were also normal. CONCLUSION: 1. No perfusion abnormality of the left ventricular myocardium was demonstrated in the resting as well as stress images obtained after the patient underwent Lexiscan stress test. 2. No wall motion abnormality. 3. Normal left ventricular systolic function with left ventricular ejection fraction of 64%. [facility]# [id number] [facility]
[2019-02-04] MEDS: TYLENOL PO PRN ×2 (14:02→21:46)
[2019-02-04] MEDS: ZESTRIL PO SCH (14:09)
[2019-02-04] MEDS: FLEXERIL PO PRN ×2 (14:10→21:47)
[2019-02-04] MEDS: DUONEB *Not for PRN Use IH SCH ×2 (15:59→20:46)
--- NOTE | 2019-02-04 16:21 | Consultation ---
History of Present Illness Consult date: 02/04/19 Requesting physician: SANTINO CAVANAUGH Reason for consult: dyspnea History of present illness: Pt. admitted with "chest heaviness" and SOB that began while she was staying at a motel that had visible mold (per patient report). She denies hx of asthma. Denies fevers, chills, wheezing, hemoptysis, cough. Minimal prior smoking hx. Feeling much better now. Currently on RA. Active Medications Acetaminophen (Tylenol) 650 mg PO Q4H PRN PRN Reason: Pain MILD(1-3)/Fever >100.5/BRONSON Last Admin: 02/04/19 14:02 Dose: 650 mg Documented by: Albuterol (Proventil) 2.5 mg IH Q4HRT PRN PRN Reason: Shortness Of Breath Albuterol/Ipratropium (Duoneb *Not For Prn Use*) 1 ampul IH Q6HRT [facility] Last Admin: 02/04/19 15:59 Dose: 1 ampul Documented by: Cyclobenzaprine HCl (Flexeril) 5 mg PO Q8H PRN PRN Reason: Muscle Spasm Last Admin: 02/04/19 14:10 Dose: 5 mg Documented by: Famotidine (Pepcid) 10 mg IV BID [facility] Last Admin: 02/04/19 10:37 Dose: 10 mg Documented by: Fluticasone Propionate (Flonase) 50 mcg NS QDAY [facility] Last Admin: 02/04/19 10:38 Dose: 50 mcg Documented by: Hydralazine HCl (Apresoline) 10 mg IV Q6H PRN PRN Reason: Hypertension Last Admin: 02/03/19 21:36 Dose: 10 mg Documented by: Sodium Chloride (Nacl 0.9% 1000 Ml) 1,000 mls @ 50 mls/hr IV DIRECT [facility] Last Admin: 02/04/19 14:09 Dose: 50 mls/hr Documented by: Lisinopril (Zestril) 20 mg PO QDAY [facility] Last Admin: 02/04/19 14:09 Dose: 20 mg Documented by: Morphine Sulfate (Morphine) 2 mg IV Q4H PRN PRN Reason: Pain, Moderate (4-6) Multivitamins/Minerals (Theragran-M Tab) 1 each PO QDAY [facility] Last Admin: 02/04/19 10:38 Dose: 1 each Documented by: Naloxone HCl (Narcan 0.4 Mg/1 Ml) 0.1 mg IV Q2MIN PRN PRN Reason: Res Rate </= 8 or 02 SAT < 92% Ondansetron HCl (Zofran) 4 mg IV Q8H PRN PRN Reason: Nausea And Vomiting Sodium Chloride (Sodium Chloride Flush Syringe 10 Ml) 10 ml IV BID [facility] Last Admin: 02/04/19 10:38 Dose: 10 ml Documented by: Sodium Chloride (Sodium Chloride Flush Syringe 10 Ml) 10 ml IV PRN PRN PRN Reason: LINE FLUSH Past History Past Medical History: cancer (renal cancer left kidney), other (obesity) Past Surgical History: Other (left nephrectomy secondary to malignancy) Social history: no significant social history, full code. denies: smoking, alcohol abuse, prescription drug abuse, IV drug use Family history: no significant family history Medications and Allergies Allergies Allergy/AdvReac Type Severity Reaction Status Date / Time No Known Allergies Allergy Verified 02/03/19 05:48 Home Medications Medication Instructions Recorded Confirmed Last Taken Type Mv-Min/Iron/Folic/Calcium/Vitk 1 each PO DAILY 02/03/19 02/03/19 Unknown History [Women's Multivitamin Tablet] Fluticasone [Flonase] 50 mcg NS QDAY #1 bottle 02/04/19 Unknown Rx Lisinopril [Zestril TAB] 20 mg PO QDAY #30 tablet 02/04/19 Unknown Rx Active Meds: Active Medications Acetaminophen (Tylenol) 650 mg PO Q4H PRN PRN Reason: Pain MILD(1-3)/Fever >100.5/BRONSON Last Admin: 02/04/19 14:02 Dose: 650 mg Documented by: Albuterol (Proventil) 2.5 mg IH Q4HRT PRN PRN Reason: Shortness Of Breath Albuterol/Ipratropium (Duoneb *Not For Prn Use*) 1 ampul IH Q6HRT [facility] Last Admin: 02/04/19 15:59 Dose: 1 ampul Documented by: Cyclobenzaprine HCl (Flexeril) 5 mg PO Q8H PRN PRN Reason: Muscle Spasm Last Admin: 02/04/19 14:10 Dose: 5 mg Documented by: Famotidine (Pepcid) 10 mg IV BID [facility] Last Admin: 02/04/19 10:37 Dose: 10 mg Documented by: Fluticasone Propionate (Flonase) 50 mcg NS QDAY [facility] Last Admin: 02/04/19 10:38 Dose: 50 mcg Documented by: Hydralazine HCl (Apresoline) 10 mg IV Q6H PRN PRN Reason: Hypertension Last Admin: 02/03/19 21:36 Dose: 10 mg Documented by: Sodium Chloride (Nacl 0.9% 1000 Ml) 1,000 mls @ 50 mls/hr IV DIRECT [facility] Last Admin: 02/04/19 14:09 Dose: 50 mls/hr Documented by: Lisinopril (Zestril) 20 mg PO QDAY [facility] Last Admin: 02/04/19 14:09 Dose: 20 mg Documented by: Morphine Sulfate (Morphine) 2 mg IV Q4H PRN PRN Reason: Pain, Moderate (4-6) Multivitamins/Minerals (Theragran-M Tab) 1 each PO QDAY [facility] Last Admin: 02/04/19 10:38 Dose: 1 each Documented by: Naloxone HCl (Narcan 0.4 Mg/1 Ml) 0.1 mg IV Q2MIN PRN PRN Reason: Res Rate </= 8 or 02 SAT < 92% Ondansetron HCl (Zofran) 4 mg IV Q8H PRN PRN Reason: Nausea And Vomiting Sodium Chloride (Sodium Chloride Flush Syringe 10 Ml) 10 ml IV BID [facility] Last Admin: 02/04/19 10:38 Dose: 10 ml Documented by: Sodium Chloride (Sodium Chloride Flush Syringe 10 Ml) 10 ml IV PRN PRN PRN Reason: LINE FLUSH Review of Systems All systems: negative Physical Examination Vital signs: Vital Signs Pulse Ox 99 02/03/19 05:42 General appearance: no acute distress, alert, other (obese) Eyes: non-icteric ENT: oropharynx moist Neck: supple Effort: normal Ascultation: Bilateral: clear Cardiovascular: regular rate and rhythm (no mrg) Gastrointestinal: normoactive bowel sounds Integumentary: normal Extremities: no cyanosis, no edema, pink and warm Musculoskeletal: no deformities normal mental status, non-focal exam, pupils equal and round mood appropriate, affect normal Results - Laboratory Findings CBC and BMP: 02/04/19 05:15 02/04/19 05:15 PT/INR, D-dimer PT 13.4 Sec. (12.2-14.9) 02/03/19 06:39 INR 1.05 (0.87-1.13) 02/03/19 06:39 260.36 ng/mlDDU (0-234) H 02/03/19 06:39 Abnormal lab findings: Abnormal Labs 02/03/19 02/03/19 02/03/19 05:52 05:52 06:39 Eos % (Auto) D-Dimer 260.36 H BUN 20 H Glucose 108 H Albumin 3.6 L 02/04/19 02/04/19 05:15 05:15 Eos % (Auto) 4.8 H D-Dimer BUN Glucose 106 H Albumin - Diagnostic Findings Chest x-ray: report reviewed, image reviewed CT scan - chest: report reviewed, image reviewed (6mm RML nodule, no PE) Assessment and Plan Imp: 1. Chest pain/SOB, unclear etiology; r/o Asthma 2. Morbid obesity 3. Uncontrolled HTN 4. Pulm nodule Rec: 1. She is clinically stable currently; cont. bronchodilators; she lives in [place] and will be returning there after d/c -> I advised her that she needs outpatient PFTs to exclude asthma and she needs to establish care with a pulmonary MD in [place] for the same; avoid mold/triggers 2. She was notified re: the solitary pulmonary nodule; per Fleischner's criteri a, recommended a f/u CT chest 6 months; she expressed understanding 3. Weight loss 4. BP control 5. If she continues to do well, okay with d/c in AM pulmonary-guillory, with f/u in [place] per above Plan of care reviewed w/ patient, she understands/agrees Thanks for the consult.
--- NOTE | 2019-02-04 18:25 | Vascular Lab Report ---
DUPLEX DOPPLER LOWER EXTREMITY VEINS, BILATERAL INDICATION: Bilateral lower extremity pain and swelling for a few days. TECHNIQUE: Duplex doppler imaging was performed through the veins of both lower extremities using venous nahomi emili and other maneuvers. COMPARISON: No relevant prior imaging study available. FINDINGS: Right Common Femoral vein: Negative. Right Superficial Femoral vein: Negative. Right Popliteal vein: Negative. Right Calf veins: Negative. Left Common Femoral vein: Negative. Left Superficial Femoral vein: Negative. Left Popliteal vein: Negative. Left Calf veins: Negative. Additional findings: None. IMPRESSION: No sonographic evidence for DVT in either lower extremity. Signer Name: Brooks Ojeda MD Signed: 02/04/2019 6:20 PM Workstation Name: [id number]
[2019-02-05] MEDS: DUONEB *Not for PRN Use IH SCH ×3 (03:05→13:20)
[2019-02-05] MEDS: THERAGRAN-M Tab PO SCH (10:44)
[2019-02-05] MEDS: FLONASE NS SCH (10:44)
[2019-02-05] MEDS: PEPCID IV SCH (10:44)
[2019-02-05] MEDS: SODIUM CHLORIDE FLUSH SYRINGE 10 ML IV SCH (10:44)
[2019-02-05] MEDS: ZESTRIL PO SCH (10:45)
[2019-02-05 11:51] VITALS: BP 145/85
== END 2019-02-05 14:06 | disposition home or self-care (01) ==
LOC: ED 05:44 → INTOOBSV 07:52 → 4A 07:52
PROVIDERS: ADMIT Internal Medicine; ATTEND Internal Medicine
DX: R07.89 Other chest pain (principal); I10 Essential (primary) hypertension; R06.02 Shortness of breath; R79.89 Other specified abnormal findings of blood chemistry; E66.01 Morbid (severe) obesity due to excess calories; Z68.42 Body mass index [BMI] 45.0-49.9, adult
CPT/HCPCS: 36415; 70450; 71045; 71275; 78452; 80048; 80076; 83735; 83880; 84484; 85025; 85379; 85610; 85730; 87116; 93005; 93010; 93017; 93970; 94640; 96374; 96375; 96376; 99285; A9502; G0378; J0360; J2785; J7030; Q9967; 96361; J1956